=== PATIENT | female | born 1945 | race Caucasian/White ===

== ENCOUNTER 2019-03-10 12:27 | Inpatient (IN) | payer MEDICARE, OTHER ==
[~2019-03-10] VITALS: Ht 162.6 cm; Wt 67.6 kg
[~2019-03-10 12:27] MED LIST: BUPIVACAINE /EPINEPHRINE/PF 0.25% 30 ML VIAL INJ ONE; BUPIVACAINE LIPOSOME/PF 266 MG/20 ML VIAL INFIL ONE; LEVOFLOXACIN 500 MG/D5W 100 ML PIGGYBACK IV ONE; LR 1,000 ML IV.SOLN IV ONE; MIDAZOLAM HCL 5 MG/5 ML VIAL IVP ONE; NS 1000 ML IV.SOLN IV ONE; NS IRRIG SOLN 1000 ML IR ONE; PROPOFOL 200MG/ 20ML VIAL (DIPRIVAN) IV ONE; ROCURONIUM BROMIDE 10 MG/ML (ZEMURON) IV ONE; SEVOFLURANE 15 MIN GAS INH ONE; fentaNYL CITRATE/PF 100 MCG/2 ML AMP IVP ONE
[2019-03-10 12:43] VITALS: BP_SYST 142
[2019-03-10] MEDS ORDERED: NACL 0.9% 1,000 ML IV ONE (13:11)
[2019-03-10] MEDS ORDERED: NS 1000 ML IV.SOLN IV ONE (13:15)
[2019-03-10] MEDS ORDERED: ONDANSETRON HCL 4 MG/2 ML VIAL IVP ONE (13:15)
[2019-03-10 14:15] LABS: BILIRUBIN,URINE NEGATIVE (NEGATIVE); BLOOD, URINE NEGATIVE (NEGATIVE); CLARITY/URINE CLEAR (CLEAR); COLOR,URINE YELLOW (YELLOW); GLUCOSE,URINE NEGATIVE (NEGATIVE); KETONES,URINE NEGATIVE (NEGATIVE); LEUKOCYTE ESTERASE ,URINE NEGATIVE (NEGATIVE); NITRITE, URINE NEGATIVE (NEGATIVE); PROTEIN URINE NEGATIVE (NEGATIVE); UROBILINOGEN,URINE 0.2 (0.2-1.0)
[2019-03-10 14:44] LABS: BASOPHILS % (AUTO) 0.3 % (0.0-2.0); EOSINOPHILS % (AUTO) 0.6 % (0.0-4.0); HEMATOCRIT 38.6 % (36-48); HEMOGLOBIN 12.6 g/dL (12.0-16.0); LYMPHOCYTES # (AUTO) 1.4 K/uL (1.0-5.5); LYMPHOCYTES % (AUTO) 21.1 % (20.5-51.5); MEAN CORPUSCULAR HEMOGLOBIN 31 pg (27-31); MEAN CORPUSCULAR HGB CONC 33 % (32-36); MEAN CORPUSCULAR VOLUME 96 fL (79.0-98.0); MONOCYTES # (AUTO) 0.3 K/uL (0.0-1.0); MONOCYTES % (AUTO) 4.7 % (1.7-9.3); NEUTROPHILS # (AUTO) 4.9 K/uL (1.8-7.7); NEUTROPHILS % (AUTO) 73.3 % (40.0-70.0); PLATELET COUNT (AUTO) 215 K/uL (130-430); RED BLOOD CELL COUNT(AUTO) 4.03 MIL/uL (4.2-6.2); RED CELL DISTRIBUTION WIDTH 13.2 % (9.0-15.0); WHITE BLOOD COUNT (AUTO) 6.7 K/uL (4.8-10.8)
[2019-03-10 14:48] LABS: ANION GAP 8 (5-15); CALCIUM 9.3 mg/dL (8.4-11.0); CHLORIDE 102 mmol/L (98-107); CREATININE 0.63 mg/dL (0.55-1.30); GLUCOSE 105 mg/dL (70-99); POTASSIUM 3.6 mmol/L (3.5-5.1); SODIUM SERUM 141 mmol/L (136-145); UREA NITROGEN, BLOOD 15 mg/dL (8-21)
[2019-03-10 14:54] LABS: ALANINE AMINOTRANSFERASE 35 U/L (12-78); ALBUMIN 4.2 g/dL (3.4-4.8); AMYLASE 46 U/L (0-100); ASPARTATE AMINOTRANSFERASE 17 U/L (10-37); LIPASE 96 U/L (73-393); PROTHROMBIN TIME 9.9 SECS (9.5-12.5)
[2019-03-10] MEDS ORDERED: MORPHINE 4 MG/ML INJ. SYRINGE IVP ONE (15:30)
[2019-03-10] MEDS ORDERED: LORazepam 2 MG/ML VIAL IVP PRN (16:45)
[2019-03-10] MEDS ORDERED: MORPHINE 2 MG/ML INJ. SYRINGE IVP PRN (16:45)
[2019-03-10] MEDS ORDERED: MORPHINE 4 MG/ML INJ. SYRINGE IVP PRN (16:45)
[2019-03-10 17:32] VITALS: BP_SYST 149
[2019-03-10] MEDS: D5/0.45 NS 1,000 ML IV SCH (17:33)
[2019-03-10 20:00] VITALS: BP_SYST 138
[2019-03-10] MEDS: metroNIDAZOLE 500 mg/NS 100 ML IV SCH (22:18)
[2019-03-10] MEDS ORDERED: LEVOFLOXACIN 500 MG/D5W 100 ML IV ONE (22:29)
[2019-03-10] MEDS ORDERED: metroNIDAZOLE 500 mg/NS 200 ML IV ONE (22:30)
[2019-03-10] MEDS: LEVOFLOXACIN 500 MG/D5W 100 ML IV SCH (23:21)
[2019-03-11 00:23] VITALS: BP_SYST 105
[2019-03-11] MEDS: D5/0.45 NS 1,000 ML IV SCH ×2 (03:33→12:38)
[2019-03-11] MEDS: metroNIDAZOLE 500 mg/NS 100 ML IV SCH ×2 (05:01→19:37)
[2019-03-11 07:16] LABS: BASOPHILS % (AUTO) 0.5 % (0.0-2.0); EOSINOPHILS # (AUTO) 0.1 K/uL (0.0-0.4); EOSINOPHILS % (AUTO) 1.7 % (0.0-4.0); HEMATOCRIT 34.4 % (36-48); HEMOGLOBIN 11.4 g/dL (12.0-16.0); LYMPHOCYTES # (AUTO) 1.6 K/uL (1.0-5.5); LYMPHOCYTES % (AUTO) 34.5 % (20.5-51.5); MEAN CORPUSCULAR HEMOGLOBIN 32 pg (27-31); MEAN CORPUSCULAR HGB CONC 33 % (32-36); MEAN CORPUSCULAR VOLUME 96 fL (79.0-98.0); MONOCYTES # (AUTO) 0.4 K/uL (0.0-1.0); MONOCYTES % (AUTO) 7.8 % (1.7-9.3); NEUTROPHILS # (AUTO) 2.5 K/uL (1.8-7.7); NEUTROPHILS % (AUTO) 55.5 % (40.0-70.0); PLATELET COUNT (AUTO) 182 K/uL (130-430); RED CELL DISTRIBUTION WIDTH 13.2 % (9.0-15.0); WHITE BLOOD COUNT (AUTO) 4.6 K/uL (4.8-10.8)
[2019-03-11 07:39] LABS: ALANINE AMINOTRANSFERASE 27 U/L (12-78); ALBUMIN 3.3 g/dL (3.4-4.8); ANION GAP 6 (5-15); ASPARTATE AMINOTRANSFERASE 13 U/L (10-37); CALCIUM 8.5 mg/dL (8.4-11.0); CHLORIDE 105 mmol/L (98-107); CREATININE 0.63 mg/dL (0.55-1.30); GLUCOSE 111 mg/dL (70-99); PHOSPHORUS 2.8 mg/dL (2.7-4.5); POTASSIUM 3.5 mmol/L (3.5-5.1); SODIUM SERUM 138 mmol/L (136-145); TOTAL BILIRUBIN 0.7 mg/dL (0.0-1.0); UREA NITROGEN, BLOOD 10 mg/dL (8-21)
[2019-03-11 13:13] VITALS: BP_SYST 127
[2019-03-11 14:05] LABS: PROTHROMBIN TIME 10.3 SECS (9.5-12.5)
[2019-03-11 17:57] VITALS: BP_SYST 131
[2019-03-11 20:00] VITALS: BP_SYST 119
[2019-03-11] MEDS: LEVOFLOXACIN 500 MG/D5W 100 ML IV SCH (21:36)
[2019-03-12 00:30] VITALS: BP_SYST 126
[2019-03-12] MEDS: D5/0.45 NS 1,000 ML IV SCH ×2 (00:31→20:43)
[2019-03-12] MEDS: metroNIDAZOLE 500 mg/NS 100 ML IV SCH ×4 (02:48→22:05)
[2019-03-12 06:34] LABS: BASOPHILS % (AUTO) 0.7 % (0.0-2.0); EOSINOPHILS # (AUTO) 0.1 K/uL (0.0-0.4); EOSINOPHILS % (AUTO) 1.4 % (0.0-4.0); HEMATOCRIT 34.8 % (36-48); HEMOGLOBIN 11.6 g/dL (12.0-16.0); LYMPHOCYTES # (AUTO) 1.5 K/uL (1.0-5.5); LYMPHOCYTES % (AUTO) 32.7 % (20.5-51.5); MEAN CORPUSCULAR HEMOGLOBIN 32 pg (27-31); MEAN CORPUSCULAR HGB CONC 33 % (32-36); MEAN CORPUSCULAR VOLUME 95 fL (79.0-98.0); MONOCYTES # (AUTO) 0.4 K/uL (0.0-1.0); MONOCYTES % (AUTO) 9.1 % (1.7-9.3); NEUTROPHILS # (AUTO) 2.5 K/uL (1.8-7.7); NEUTROPHILS % (AUTO) 56.1 % (40.0-70.0); PLATELET COUNT (AUTO) 189 K/uL (130-430); RED BLOOD CELL COUNT(AUTO) 3.65 MIL/uL (4.2-6.2); WHITE BLOOD COUNT (AUTO) 4.5 K/uL (4.8-10.8)
[2019-03-12 06:56] LABS: ALANINE AMINOTRANSFERASE 25 U/L (12-78); ALBUMIN 3.3 g/dL (3.4-4.8); ANION GAP 8 (5-15); ASPARTATE AMINOTRANSFERASE 17 U/L (10-37); CALCIUM 8.3 mg/dL (8.4-11.0); CHLORIDE 105 mmol/L (98-107); CREATININE 0.59 mg/dL (0.55-1.30); GLUCOSE 95 mg/dL (70-99); POTASSIUM 3.4 mmol/L (3.5-5.1); SODIUM SERUM 140 mmol/L (136-145); TOTAL BILIRUBIN 0.6 mg/dL (0.0-1.0); UREA NITROGEN, BLOOD 11 mg/dL (8-21)
[2019-03-12] MEDS ORDERED: fentaNYL CITRATE/PF 100 MCG/2 ML AMP IVP PRN (08:15)
[2019-03-12] MEDS ORDERED: ONDANSETRON HCL 4 MG/2 ML VIAL IVP PRN ×2 (08:15→09:00)
[2019-03-12 08:33] VITALS: BP_SYST 126
[2019-03-12] MEDS ORDERED: BUPIVACAINE LIPOSOME/PF 266 MG/20 ML VIAL INFIL ONE (08:44)
[2019-03-12] MEDS ORDERED: HYDROmorphone 1 MG INJ. 1 MG/ML AMPUL IVP PRN (09:00)
[2019-03-12] MEDS ORDERED: HYDROcodone/ACETAMIN 5-325 MG TAB (NORCO/ VICODIN) PO PRN (09:00)
[2019-03-12] MEDS: fentaNYL CITRATE/PF 100 MCG/2 ML AMP IVP PRN ×2 (09:10→09:55)
[2019-03-12] MEDS ORDERED: fentaNYL CITRATE/PF 100 MCG/2 ML AMP ONE (09:26)
[2019-03-12 10:15] VITALS: BP_SYST 114
[2019-03-12 15:10] VITALS: BP_SYST 148
[2019-03-12] MEDS: ONDANSETRON HCL 4 MG/2 ML VIAL IVP PRN (15:43)
[2019-03-12] MEDS: ACETAMINOPHEN 325 MG TABLET PO PRN (18:34)
[2019-03-12 20:00] VITALS: BP_SYST 134
[2019-03-12] MEDS: LEVOFLOXACIN 500 MG/D5W 100 ML IV SCH (20:42)
[2019-03-13] VITALS: BP_SYST 118
[2019-03-13] MEDS: ACETAMINOPHEN 325 MG TABLET PO PRN ×2 (00:37→19:29)
[2019-03-13] MEDS: ONDANSETRON HCL 4 MG/2 ML VIAL IVP PRN (00:42)
[2019-03-13] MEDS: metroNIDAZOLE 500 mg/NS 100 ML IV SCH ×3 (05:43→22:17)
[2019-03-13 07:39] LABS: ALBUMIN 3.4 g/dL (3.4-4.8); ANION GAP 5 (5-15); CALCIUM 8.5 mg/dL (8.4-11.0); CHLORIDE 103 mmol/L (98-107); CREATININE 0.73 mg/dL (0.55-1.30); GLUCOSE 106 mg/dL (70-99); POTASSIUM 3.3 mmol/L (3.5-5.1); SODIUM SERUM 135 mmol/L (136-145); TOTAL BILIRUBIN 0.8 mg/dL (0.0-1.0); UREA NITROGEN, BLOOD 7 mg/dL (8-21)
[2019-03-13 07:47] LABS: ALANINE AMINOTRANSFERASE 68 U/L (12-78); ASPARTATE AMINOTRANSFERASE 60 U/L (10-37)
[2019-03-13 08:00] VITALS: BP_SYST 131
[2019-03-13 08:52] LABS: BASOPHILS % (AUTO) 0.2 % (0.0-2.0); EOSINOPHILS % (AUTO) 0.6 % (0.0-4.0); HEMATOCRIT 35.7 % (36-48); HEMOGLOBIN 11.9 g/dL (12.0-16.0); LYMPHOCYTES # (AUTO) 1.3 K/uL (1.0-5.5); LYMPHOCYTES % (AUTO) 16.9 % (20.5-51.5); MEAN CORPUSCULAR HEMOGLOBIN 32 pg (27-31); MEAN CORPUSCULAR HGB CONC 33 % (32-36); MEAN CORPUSCULAR VOLUME 96 fL (79.0-98.0); MONOCYTES # (AUTO) 0.6 K/uL (0.0-1.0); MONOCYTES % (AUTO) 7.4 % (1.7-9.3); NEUTROPHILS # (AUTO) 5.7 K/uL (1.8-7.7); NEUTROPHILS % (AUTO) 74.9 % (40.0-70.0); PLATELET COUNT (AUTO) 207 K/uL (130-430); RED BLOOD CELL COUNT(AUTO) 3.74 MIL/uL (4.2-6.2); RED CELL DISTRIBUTION WIDTH 12.7 % (9.0-15.0)
[2019-03-13 09:13] LABS: WHITE BLOOD COUNT (AUTO) 7.5 K/uL (4.8-10.8)
[2019-03-13 12:01] VITALS: BP_SYST 127
[2019-03-13] MEDS: D5/0.45 NS 1,000 ML IV SCH ×2 (14:59→23:15)
[2019-03-13 16:28] VITALS: BP_SYST 123
[2019-03-13 20:00] VITALS: BP_SYST 130
[2019-03-13] MEDS: LEVOFLOXACIN 500 MG/D5W 100 ML IV SCH (21:09)
[2019-03-14 00:30] VITALS: BP_SYST 126
[2019-03-14] MEDS: metroNIDAZOLE 500 mg/NS 100 ML IV SCH (05:09)
[2019-03-14 08:00] VITALS: BP_SYST 137
[2019-03-14] MEDS ORDERED: CHOLESTYRAMINE/SUCROSE 4 GM/PACKET PO PRN (09:00)
[2019-03-14] MEDS: D5/0.45 NS 1,000 ML IV SCH (10:38)
[2019-03-14 12:22] VITALS: BP_SYST 119
[2019-03-14] MEDS ORDERED: LEVO750T45 PO (12:51)
[2019-03-14] MEDS ORDERED: METR500T PO (12:53)
[2019-03-14 12:56] VITALS: BP_SYST 119
== END 2019-03-14 14:45 | disposition home or self-care (01) | DRG 342 ==
LOC: SED 12:27 → SMU 16:38
PROVIDERS: ADMIT Preventive Medicine Preventive Medicine/Occupational Environmental Medicine; ATTEND Preventive Medicine Preventive Medicine/Occupational Environmental Medicine
PROC: 0FT44ZZ Resection of Gallbladder, Percutaneous Endoscopic Approach (ICD-10-PCS; 2019-03-12)
PROC: 0DTJ4ZZ Resection of Appendix, Percutaneous Endoscopic Approach (ICD-10-PCS; principal; 2019-03-12 07:30)
DX: K37 Unspecified appendicitis (principal); K80.10 Calculus of gallbladder with chronic cholecystitis without obstruction; F19.10 Other psychoactive substance abuse, uncomplicated; K52.9 Noninfective gastroenteritis and colitis, unspecified; K59.00 Constipation, unspecified; K62.3 Rectal prolapse; K21.9 Gastro-esophageal reflux disease without esophagitis; K40.90 Unilateral inguinal hernia, without obstruction or gangrene, not specified as recurrent; K57.90 Diverticulosis of intestine, part unspecified, without perforation or abscess without bleeding; R73.9 Hyperglycemia, unspecified; Z88.0 Allergy status to penicillin; Z80.3 Family history of malignant neoplasm of breast; Z88.8 Allergy status to other drugs, medicaments and biological substances; Z79.899 Other long term (current) drug therapy
CPT/HCPCS: 36415; 71045; 78226; 80053; 81003; 82150-TC; 82272; 82550-TC; 83605; 83690-TC; 83735-TC; 84100-TC; 84484; 85025; 85610-TC; 85730-TC; 87040-TC; 87045-TC; 87081; 87177; 88304; 89055; 93005; 96360; 96361; 99285; A9537; C1727; C9290; J1956; J2250; J2270; J2405; J2704; J3010; J3490; J7030; J7120

== ENCOUNTER 2020-03-04 12:05 | Emergency (ER) | payer OTHER ==
[~2020-03-04] VITALS: Ht 162.6 cm; Wt 56.7 kg
[~2020-03-04 12:05] MED LIST changes: -BUPIVACAINE /EPINEPHRINE/PF 0.25% 30 ML VIAL INJ ONE; -BUPIVACAINE LIPOSOME/PF 266 MG/20 ML VIAL INFIL ONE; +LEVO500T89 PO; -LEVOFLOXACIN 500 MG/D5W 100 ML PIGGYBACK IV ONE; -LR 1,000 ML IV.SOLN IV ONE; +METR500T PO; -MIDAZOLAM HCL 5 MG/5 ML VIAL IVP ONE; -NS 1000 ML IV.SOLN IV ONE; -NS IRRIG SOLN 1000 ML IR ONE; -PROPOFOL 200MG/ 20ML VIAL (DIPRIVAN) IV ONE; -ROCURONIUM BROMIDE 10 MG/ML (ZEMURON) IV ONE; -SEVOFLURANE 15 MIN GAS INH ONE; -fentaNYL CITRATE/PF 100 MCG/2 ML AMP IVP ONE
[2020-03-04 12:13] VITALS: BP_SYST 157
[2020-03-04 13:40] VITALS: BP_SYST 127
== END 2020-03-04 13:39 | disposition home or self-care (01) ==
LOC: SED 12:05
DX: S70.00XA Contusion of unspecified hip, initial encounter (principal); S49.91XA Unspecified injury of right shoulder and upper arm, initial encounter; K21.9 Gastro-esophageal reflux disease without esophagitis; Z88.0 Allergy status to penicillin; V49.9XXA Car occupant (driver) (passenger) injured in unspecified traffic accident, initial encounter; Y93.89 Activity, other specified; Y92.89 Other specified places as the place of occurrence of the external cause; Y99.8 Other external cause status
CPT/HCPCS: 72170-TC; 73030; 99284

== ENCOUNTER 2023-04-02 02:26 | Emergency (ER) | payer OTHER ==
[~2023-04-02] VITALS: Ht 162.6 cm; Wt 67.6 kg
[~2023-04-02 02:26] MED LIST changes: +FAMO-132 PO; +LEVO-62 PO; -LEVO500T89 PO
[2023-04-02 02:29] VITALS: BP_SYST 148; PULSE 105; RESP 12; TEMP 97.8; O2SAT 95
[2023-04-02 03:16] LABS: BILIRUBIN,URINE NEGATIVE (NEGATIVE); BLOOD, URINE 2+ (NEGATIVE); CLARITY/URINE CLEAR (CLEAR); COLOR,URINE YELLOW (YELLOW); GLUCOSE,URINE NEGATIVE (NEGATIVE); KETONES,URINE NEGATIVE (NEGATIVE); LEUKOCYTE ESTERASE ,URINE 3+ (NEGATIVE); NITRITE, URINE NEGATIVE (NEGATIVE); PROTEIN URINE NEGATIVE (NEGATIVE); UROBILINOGEN,URINE 0.2 (0.2-1.0)
[2023-04-02 03:25] LABS: BACTERIA,URINE None Seen /HPF (None Seen); RBC,URINE 0-3 /HPF (0-3)
[2023-04-02 03:37] LABS: BASOPHILS % (AUTO) 0.2 % (0.0-2.0); EOSINOPHILS # (AUTO) 0.1 K/uL (0.0-0.4); EOSINOPHILS % (AUTO) 0.6 % (0.0-4.0); HEMATOCRIT 35.4 % (36-48); HEMOGLOBIN 11.8 g/dL (12.0-16.0); LYMPHOCYTES # (AUTO) 1.2 K/uL (1.0-5.5); LYMPHOCYTES % (AUTO) 11.1 % (20.5-51.5); MEAN CORPUSCULAR HEMOGLOBIN 31 pg (27-31); MEAN CORPUSCULAR HGB CONC 33 % (32-36); MEAN CORPUSCULAR VOLUME 92 fL (79.0-98.0); MONOCYTES # (AUTO) 0.7 K/uL (0.0-1.0); NEUTROPHILS # (AUTO) 9.1 K/uL (1.8-7.7); NEUTROPHILS % (AUTO) 82.1 % (40.0-70.0); PLATELET COUNT (AUTO) 211 K/uL (130-430); RED BLOOD CELL COUNT(AUTO) 3.85 MIL/uL (4.2-6.2); RED CELL DISTRIBUTION WIDTH 14.7 % (9.0-15.0); WHITE BLOOD COUNT (AUTO) 11.1 K/uL (4.8-10.8)
[2023-04-02 03:48] LABS: ANION GAP 9 (5-15); CARBON DIOXIDE 25 mmol/L (23-29); CHLORIDE 104 mmol/L (98-107); CREATININE 0.77 mg/dL (0.55-1.30); GLUCOSE 136 mg/dL (74-106); POTASSIUM 3.6 mmol/L (3.5-5.1); SODIUM SERUM 138 mmol/L (136-145); UREA NITROGEN, BLOOD 16 mg/dL (8-21)
[2023-04-02 03:53] LABS: ALANINE AMINOTRANSFERASE 40 U/L (12-78); ALBUMIN 3.7 g/dL (3.4-4.8); ASPARTATE AMINOTRANSFERASE 19 U/L (10-37); BILIRUBIN,DIRECT 0.1 mg/dL (0.0-0.3); TOTAL BILIRUBIN 0.5 mg/dL (0.0-1.0); TOTAL PROTEIN, SERUM 7.3 g/dL (6.4-8.3)
[2023-04-02] MEDS: cefTRIAXone 1 GM IVPB PREMIX 50 ML IV ONE (04:11)
[2023-04-02] MEDS: NACL 0.9% 1,000 ML IV ONE (04:22)
[2023-04-02] MEDS ORDERED: CIPR500T5 PO (05:21)
[2023-04-02 05:32] VITALS: BP_SYST 107; PULSE 97; RESP 14; TEMP 98.3; O2SAT 96
== END 2023-04-02 05:30 | disposition home or self-care (01) ==
LOC: SED 02:26
DX: N39.0 Urinary tract infection, site not specified (principal); K21.9 Gastro-esophageal reflux disease without esophagitis; Z88.0 Allergy status to penicillin; Z88.8 Allergy status to other drugs, medicaments and biological substances; Z79.899 Other long term (current) drug therapy
CPT/HCPCS: 99285; 96365; 71045; 80076; 80048; 81001; 85025; 87040; 36415; 93005; 83605; J0696; 81000; 81015

== ENCOUNTER 2023-04-30 08:23 | Emergency (ER) | payer OTHER ==
[~2023-04-30] VITALS: Ht 162.6 cm; Wt 68.5 kg
[~2023-04-30 08:23] MED LIST changes: +CIPR500T5 PO
[2023-04-30 08:25] VITALS: BP_SYST 164; PULSE 96; RESP 20; TEMP 98.2; O2SAT 97
[2023-04-30 09:09] LABS: BASOPHILS % (AUTO) 0.6 % (0.0-2.0); EOSINOPHILS # (AUTO) 0.1 K/uL (0.0-0.4); HEMATOCRIT 36.4 % (36-48); HEMOGLOBIN 12.2 g/dL (12.0-16.0); LYMPHOCYTES # (AUTO) 2.5 K/uL (1.0-5.5); LYMPHOCYTES % (AUTO) 47.4 % (20.5-51.5); MEAN CORPUSCULAR HEMOGLOBIN 31 pg (27-31); MEAN CORPUSCULAR HGB CONC 34 % (32-36); MEAN CORPUSCULAR VOLUME 93 fL (79.0-98.0); MONOCYTES # (AUTO) 0.3 K/uL (0.0-1.0); MONOCYTES % (AUTO) 6.1 % (1.7-9.3); NEUTROPHILS # (AUTO) 2.3 K/uL (1.8-7.7); NEUTROPHILS % (AUTO) 43.9 % (40.0-70.0); PLATELET COUNT (AUTO) 223 K/uL (130-430); RED BLOOD CELL COUNT(AUTO) 3.91 MIL/uL (4.2-6.2); RED CELL DISTRIBUTION WIDTH 14.1 % (9.0-15.0); WHITE BLOOD COUNT (AUTO) 5.3 K/uL (4.8-10.8)
[2023-04-30 09:21] LABS: ANION GAP 10 (5-15); CALCIUM 9.1 mg/dL (8.4-11.0); CARBON DIOXIDE 26 mmol/L (23-29); CHLORIDE 106 mmol/L (98-107); CREATININE 0.75 mg/dL (0.55-1.30); GLUCOSE 104 mg/dL (74-106); POTASSIUM 3.8 mmol/L (3.5-5.1); SODIUM SERUM 142 mmol/L (136-145); UREA NITROGEN, BLOOD 17 mg/dL (8-21)
[2023-04-30 09:52] LABS: BILIRUBIN,URINE NEGATIVE (NEGATIVE); CLARITY/URINE CLEAR (CLEAR); COLOR,URINE YELLOW (YELLOW); GLUCOSE,URINE NEGATIVE (NEGATIVE); KETONES,URINE NEGATIVE (NEGATIVE); LEUKOCYTE ESTERASE ,URINE 3+ (NEGATIVE); NITRITE, URINE NEGATIVE (NEGATIVE); PH,URINE 6.5 (5.0-8.0); PROTEIN URINE NEGATIVE (NEGATIVE); UROBILINOGEN,URINE 0.2 (0.2-1.0)
[2023-04-30 10:08] LABS: BLOOD, URINE TRACE (NEGATIVE)
[2023-04-30 10:55] LABS: BACTERIA,URINE FEW /HPF (None Seen)
[2023-04-30] MEDS ORDERED: NITR-85 PO (12:40)
[2023-04-30 12:51] VITALS: BP_SYST 123; PULSE 80; RESP 16; TEMP 98.2; O2SAT 96
== END 2023-04-30 12:50 | disposition home or self-care (01) ==
LOC: SED 08:23
DX: S93.511A Sprain of interphalangeal joint of right great toe, initial encounter (principal); N39.0 Urinary tract infection, site not specified; K21.9 Gastro-esophageal reflux disease without esophagitis; Z88.0 Allergy status to penicillin; Z79.899 Other long term (current) drug therapy; X58.XXXA Exposure to other specified factors, initial encounter; Y93.89 Activity, other specified; Y92.89 Other specified places as the place of occurrence of the external cause; Y99.8 Other external cause status
CPT/HCPCS: 36415; 80048; 81000; 81001; 81015; 83605; 85025; 87086; 99284

== ENCOUNTER 2023-10-04 17:05 | Emergency (ER) | payer OTHER ==
[~2023-10-04] VITALS: Ht 162.6 cm; Wt 68.5 kg
[~2023-10-04 17:05] MED LIST changes: +NITR-85 PO
[2023-10-04 17:30] VITALS: BP_SYST 167; PULSE 95; RESP 18; TEMP 98.5; O2SAT 96
[2023-10-04] MEDS ORDERED: ONDANSETRON HCL 4 MG/2 ML VIAL ONE (19:11)
[2023-10-04] MEDS: NACL 0.9% 1,000 ML IV ONE (19:19)
[2023-10-04] MEDS: ONDANSETRON HCL 4 MG/2 ML VIAL IVP ONE (19:20)
[2023-10-04 19:49] LABS: BASOPHILS # (AUTO) 0.1 K/uL (0.0-0.2); EOSINOPHILS % (AUTO) 0.3 % (0.0-4.0); HEMATOCRIT 40.5 % (36-48); HEMOGLOBIN 13.8 g/dL (12.0-16.0); LYMPHOCYTES # (AUTO) 0.8 K/uL (1.0-5.5); LYMPHOCYTES % (AUTO) 7.7 % (20.5-51.5); MEAN CORPUSCULAR HEMOGLOBIN 32 pg (27-31); MEAN CORPUSCULAR HGB CONC 34 % (32-36); MEAN CORPUSCULAR VOLUME 94 fL (79.0-98.0); MONOCYTES # (AUTO) 0.2 K/uL (0.0-1.0); NEUTROPHILS # (AUTO) 8.9 K/uL (1.8-7.7); PLATELET COUNT (AUTO) 218 K/uL (130-430); RED BLOOD CELL COUNT(AUTO) 4.31 MIL/uL (4.2-6.2)
[2023-10-04 20:08] LABS: ALANINE AMINOTRANSFERASE 61 U/L (12-78); ALBUMIN 4.2 g/dL (3.4-4.8); ANION GAP 9 (5-15); ASPARTATE AMINOTRANSFERASE 39 U/L (10-37); BILIRUBIN,DIRECT 0.2 mg/dL (0.0-0.3); CARBON DIOXIDE 30 mmol/L (23-29); CHLORIDE 102 mmol/L (98-107); GLUCOSE 126 mg/dL (74-106); LIPASE 25 U/L (16-77); POTASSIUM 3.6 mmol/L (3.5-5.1); SODIUM SERUM 141 mmol/L (136-145); TOTAL BILIRUBIN 1.1 mg/dL (0.0-1.0); TOTAL PROTEIN, SERUM 8.1 g/dL (6.4-8.3); UREA NITROGEN, BLOOD 18 mg/dL (8-21)
[2023-10-04 21:24] LABS: BILIRUBIN,URINE NEGATIVE (NEGATIVE); CLARITY/URINE CLEAR (CLEAR); COLOR,URINE YELLOW (YELLOW); GLUCOSE,URINE NEGATIVE (NEGATIVE); KETONES,URINE NEGATIVE (NEGATIVE); LEUKOCYTE ESTERASE ,URINE 2+ (NEGATIVE); NITRITE, URINE NEGATIVE (NEGATIVE); PROTEIN URINE NEGATIVE (NEGATIVE); UROBILINOGEN,URINE 0.2 (0.2-1.0)
[2023-10-04 22:02] LABS: BLOOD, URINE TRACE (NEGATIVE)
[2023-10-04 22:26] LABS: BACTERIA,URINE FEW /HPF (None Seen)
[2023-10-04] MEDS ORDERED: cefTRIAXone 1 GM IVPB PREMIX 50 ML IV ONE (22:46)
[2023-10-04] MEDS: cefTRIAXone 1 GM IVPB PREMIX 50 ML IV ONE (22:52)
[2023-10-04] MEDS: KETOROLAC TROMETHAMINE 30 MG VIAL IVP ONE (22:53)
[2023-10-04] MEDS ORDERED: FOSF3PAC4 PO (23:53)
[2023-10-05 00:30] VITALS: BP_SYST 114; PULSE 71; RESP 14; TEMP 97.6; O2SAT 95
== END 2023-10-05 00:30 | disposition home or self-care (01) ==
LOC: SED 17:05
DX: N39.0 Urinary tract infection, site not specified (principal); R11.2 Nausea with vomiting, unspecified; R19.7 Diarrhea, unspecified; Z20.822 Contact with and (suspected) exposure to COVID-19; R53.1 Weakness; K21.9 Gastro-esophageal reflux disease without esophagitis; Z88.0 Allergy status to penicillin; Z88.6 Allergy status to analgesic agent; Z88.1 Allergy status to other antibiotic agents; Z79.899 Other long term (current) drug therapy; Z79.2 Long term (current) use of antibiotics
CPT/HCPCS: 99285; 96365; 96375; 96361; 87426; 80076; 80048; 81001; 83690; 85025; 87040; 87086; 36415; 93005; J0696; J1885; J2405; J7030; 81000; 81015